=== PATIENT | female | born 1995 | race Caucasian/White ===

== ENCOUNTER 2020-06-12 09:32 | Observation (INO) ==
[2020-06-12 09:42] LABS: Basophils % 0.3 %; Eosinophils # 0.1 K/mcL (0.0-0.6); Eosinophils % 1.2 %; Hematocrit 38.2 % (35.3-44.9); Hemoglobin 12.7 g/dL (11.5-15.4); Immature Granulocytes % 0.6 % (0-4); Lymphocytes # 2.3 K/mcL (0.6-4.6); Lymphocytes % 21.4 %; Mean Corpuscular HGB Conc 33.2 g/dL (31.6-35.5); Mean Corpuscular Hemoglobin 29.7 pg (28.0-33.3); Mean Corpuscular Volume 89.3 fL (83.0-100.0); Mean Platelet Volume 10.5 fL (9.4-12.4); Monocytes # 0.9 K/mcL (0.0-1.3); Monocytes % 8.5 %; Neutrophils # 7.3 K/mcL (1.6-8.9); Platelet Count 247 K/mcL (140-400); Red Blood Count 4.28 M/mcL (3.82-4.97); Red Cell Distribution Width 12.8 % (11.5-14.5); White Blood Count 10.7 K/mcL (4.3-11.1)
[2020-06-12 09:45] LABS: Protein/Creatinine Ratio,Urine 0.12 mg/mg (0.00-0.20)
[2020-06-12 10:02] LABS: Alanine Aminotransferase 9 Units/L (7-52); Aspartate Amino Transferase 16 Units/L (13-39); BUN/Creatinine Ratio 23 (6-26); Blood Urea Nitrogen 10 mg/dL (6-20); Lactate Dehydrogenase 150 Units/L (140-271); Uric Acid 5.5 mg/dL (2.3-7.6); eGFR For African Americans > 60 (> 60); eGFR For Non-African Americans > 60 (> 60)
== END 2020-06-12 12:06 | disposition home or self-care (01) ==
LOC: 1NENULAB
PROVIDERS: ADMIT Advanced Practice Midwife; ATTEND Advanced Practice Midwife

== ENCOUNTER 2020-06-23 06:11 | Inpatient (IN) ==
[2020-06-23] MEDS ORDERED: Ondansetron 4 MG/2 ML VIAL IVP PRN (06:12)
[2020-06-23] MEDS ORDERED: Metoclopramide 10 MG/2 ML VIAL IVP PRN (06:12)
[2020-06-23] MEDS ORDERED: Famotidine 20 MG/2 ML VIAL IVP PRN (06:12)
[2020-06-23] MEDS ORDERED: Naloxone 0.4 MG/ML INJ IVP PRN (06:12)
[2020-06-23] MEDS ORDERED: Lidocaine 1% 20 ML MDV INFILT PRN (06:12)
[2020-06-23] MEDS ORDERED: *HR* Nalbuphine 10 MG/ML AMPUL IV PRN (06:12)
[2020-06-23] MEDS ORDERED: miSOPROStoL 25 MCG TABLET PO PRN (06:14)
[2020-06-23 06:55] LABS: Basophils % 0.2 %; Eosinophils # 0.2 K/mcL (0.0-0.6); Eosinophils % 1.8 %; Hematocrit 40.8 % (35.3-44.9); Hemoglobin 13.3 g/dL (11.5-15.4); Immature Granulocytes % 0.5 % (0-4); Lymphocytes # 2.7 K/mcL (0.6-4.6); Lymphocytes % 24.5 %; Mean Corpuscular HGB Conc 32.6 g/dL (31.6-35.5); Mean Corpuscular Hemoglobin 29.3 pg (28.0-33.3); Mean Corpuscular Volume 89.9 fL (83.0-100.0); Mean Platelet Volume 11.1 fL (9.4-12.4); Monocytes # 0.7 K/mcL (0.0-1.3); Monocytes % 6.1 %; Neutrophils # 7.3 K/mcL (1.6-8.9); Platelet Count 241 K/mcL (140-400); Red Blood Count 4.54 M/mcL (3.82-4.97); Red Cell Distribution Width 13.1 % (11.5-14.5); Segmented Neutrophils % 66.9 %; White Blood Count 10.8 K/mcL (4.3-11.1)
[2020-06-23] MEDS: Ringers Solution, Lactated 1,000 ML IVC SCH ×3 (06:56→16:00)
[2020-06-23 07:13] LABS: Alanine Aminotransferase 7 Units/L (7-52); Aspartate Amino Transferase 13 Units/L (13-39); BUN/Creatinine Ratio 19 (6-26); Blood Urea Nitrogen 9 mg/dL (6-20); Glucose 133 mg/dL (70-105); Lactate Dehydrogenase 153 Units/L (140-271); Uric Acid 5.5 mg/dL (2.3-7.6); eGFR For African Americans > 60 (> 60); eGFR For Non-African Americans > 60 (> 60)
[2020-06-23 08:49] LABS: Amphetamine Screen,Urine Negative ng/mL (Cutoff=1000); Barbiturate Screen,Urine Negative ng/mL (Cutoff=200); Benzodiazepines Screen,Urine Negative ng/mL (Cutoff=200); Cannabinoid Screen,Urine Negative ng/mL (Cutoff = 50); Cocaine Screen,Urine Negative ng/mL (Cutoff= 300); Creatinine,Urine 70 mg/dL; Opiate Screen,Urine Negative ng/mL (Cutoff=300); Phencyclidine Screen,Urine Negative ng/mL (Cutoff=25); Protein/Creatinine Ratio,Urine 0.33 mg/mg (0.00-0.20)
[2020-06-23] MEDS ORDERED: *HR* FentaNYL (PF) 100 MCG/2 ML VIAL EP ONE (09:48)
[2020-06-23] MEDS ORDERED: Bupivacaine-MPF 0.25% 10 ML VIAL EP ONE (09:48)
[2020-06-23] MEDS ORDERED: EPHEDrine 50 MG/ML VIAL IVP PRN (09:48)
[2020-06-23] MEDS: Epidural Premix (fent/bupiv) 110 ML EP SCH ×2 (11:46→17:59)
[2020-06-23] MEDS ORDERED: Oxytocin 20 units/ LR 1000 mL 20 UNIT/1,000 ML BAG IVC SCH (15:30)
[2020-06-23] MEDS ORDERED: Ropivacaine/PF 0.2% 20 ML VIAL ONE (18:30)
[2020-06-23] MEDS ORDERED: *HR* FentaNYL (PF) 100 MCG/2 ML VIAL ONE ×2 (18:30→23:04)
[2020-06-23] MEDS ORDERED: 0.9 % Sodium Chloride 1,000 ML ONE (19:37)
[2020-06-24] MEDS: Ringers Solution, Lactated 1,000 ML IVC SCH (01:02)
[2020-06-24] MEDS: Epidural Premix (fent/bupiv) 110 ML EP SCH (01:03)
[2020-06-24] MEDS ORDERED: CeFAZolin 2,000 MG/50 ML BAG IVPB ONE (03:28)
[2020-06-24] MEDS ORDERED: Azithromycin 500 MG in 0.9 % Sodium Chloride 250 ML IVPB ONE (03:28)
[2020-06-24] MEDS ORDERED: Lidocaine/EPI 1:200k 2% PF 20 ML VIAL ONE (03:35)
[2020-06-24] MEDS ORDERED: *HR* FentaNYL (PF) 100 MCG/2 ML VIAL ONE (03:35)
[2020-06-24] MEDS ORDERED: Ketamine *HR* 500 MG/10 ML MDV ONE (04:07)
[2020-06-24] MEDS ORDERED: *HR* Midazolam HCl 2 MG/2 ML VIAL ONE (04:17)
[2020-06-24] MEDS ORDERED: *HR* Morphine Sulfate/PF 10 MG/10 ML AMPUL ONE (04:19)
[2020-06-24] MEDS ORDERED: Acetaminophen IV 1,000 MG/100 ML BAG IVPB ONE (04:42)
[2020-06-24] MEDS ORDERED: Ketorolac 30 MG/ML VIAL ONE (04:59)
[2020-06-24] MEDS ORDERED: Promethazine 6.25 MG in Water for inj. (sterile) 20 ML IVPB PRN (05:02)
[2020-06-24] MEDS ORDERED: Ondansetron 4 MG/2 ML VIAL IVP PRN ×2 (05:02→07:52)
[2020-06-24] MEDS ORDERED: *HR* HYDROmorphone 2 MG TABLET PO PRN (05:02)
[2020-06-24] MEDS ORDERED: Naloxone 0.4 MG/ML INJ IVP PRN (05:02)
[2020-06-24] MEDS ORDERED: *HR* Meperidine 25 MG/ML SYRINGE IVP PRN (05:02)
[2020-06-24] MEDS ORDERED: *HR* OxyCODONE Immed Rel 5 MG TABLET PO PRN (05:02)
[2020-06-24] MEDS ORDERED: Oxytocin 20 units/ LR 1000 mL 20 UNIT/1,000 ML BAG IVC SCH (07:52)
[2020-06-24] MEDS ORDERED: *HR* OxyCODONE/APAP 5/325 TABLET PO PRN (07:52)
[2020-06-24] MEDS ORDERED: Metoclopramide 10 MG/2 ML VIAL IVP PRN (07:52)
[2020-06-24] MEDS: Acetaminophen 325 MG TABLET PO SCH ×2 (15:48→22:26)
[2020-06-24] MEDS: Simethicone 80 MG TAB.CHEW PO SCH ×2 (15:48→22:27)
[2020-06-24] MEDS: Ketorolac 30 MG/ML VIAL IVP SCH ×2 (15:48→22:25)
[2020-06-24] MEDS ORDERED: Sennosides 8.6 MG TABLET PO SCH (21:00)
[2020-06-25 04:26] LABS: Basophils % 0.3 %; Eosinophils # 0.2 K/mcL (0.0-0.6); Eosinophils % 1.3 %; Hematocrit 30.3 % (35.3-44.9); Immature Granulocytes % 0.5 % (0-4); Lymphocytes # 3.2 K/mcL (0.6-4.6); Lymphocytes % 23.4 %; Mean Corpuscular HGB Conc 32.7 g/dL (31.6-35.5); Mean Corpuscular Hemoglobin 29.6 pg (28.0-33.3); Mean Corpuscular Volume 90.7 fL (83.0-100.0); Mean Platelet Volume 10.9 fL (9.4-12.4); Monocytes # 0.8 K/mcL (0.0-1.3); Monocytes % 5.7 %; Neutrophils # 9.2 K/mcL (1.6-8.9); Platelet Count 197 K/mcL (140-400); Red Blood Count 3.34 M/mcL (3.82-4.97); Red Cell Distribution Width 13.2 % (11.5-14.5); Segmented Neutrophils % 68.8 %; White Blood Count 13.5 K/mcL (4.3-11.1)
[2020-06-25 04:28] LABS: Hemoglobin 9.9 g/dL (11.5-15.4)
[2020-06-25] MEDS: Prenatal Vit/FA 1 EACH TABLET PO SCH (08:01)
[2020-06-25] MEDS: Simethicone 80 MG TAB.CHEW PO SCH ×2 (08:01→21:08)
[2020-06-25] MEDS: Ibuprofen 600 MG TABLET PO SCH ×2 (15:44→21:09)
[2020-06-26] MEDS: Acetaminophen 325 MG TABLET PO SCH (05:11)
[2020-06-26] MEDS: Ibuprofen 600 MG TABLET PO SCH (05:12)
[2020-06-26 08:25] VITALS: BP 131/80
[2020-06-26] MEDS: Simethicone 80 MG TAB.CHEW PO SCH (09:20)
[2020-06-26] MEDS: Prenatal Vit/FA 1 EACH TABLET PO SCH (09:20)
== END 2020-06-26 12:25 | disposition home or self-care (01) | DRG 788 ==
LOC: 1NENULAB 06:11 → 1NENUOBS 06-24 07:41
PROVIDERS: ADMIT Registered Nurse; ATTEND Registered Nurse